=== PATIENT | female | born 1940 | race Caucasian/White ===

== ENCOUNTER 2016-10-10 08:42 | Outpatient (CLI) | payer MEDICARE | END 2016-10-10 08:43 | disposition home or self-care (01) | DX: E11.9 Type 2 diabetes mellitus without complications (principal); I10 Essential (primary) hypertension; E78.5 Hyperlipidemia, unspecified; E55.9 Vitamin D deficiency, unspecified ==

== ENCOUNTER 2016-11-03 08:57 | Outpatient (CLI) | payer MEDICARE | END 2016-11-03 08:58 | disposition home or self-care (01) | DX: E78.5 Hyperlipidemia, unspecified (principal); I10 Essential (primary) hypertension; E11.9 Type 2 diabetes mellitus without complications ==

== ENCOUNTER 2017-01-26 09:09 | Outpatient (CLI) | payer MEDICARE ==
--- NOTE | 2017-01-26 14:07 | XRAY Report ---
TWO-VIEW CHEST: 01/26/2017 CLINICAL INDICATION: Bronchitis, wheezing. COMPARISON: 04/07/2013 FINDINGS: Frontal and lateral views of the chest demonstrate a normal cardiac silhouette. The lungs are clear. No effusion or pneumothorax is present. IMPRESSION: NORMAL CHEST, UNCHANGED. JOB #: [id number] EXT JOB #:[id number]
== END 2017-01-26 09:10 | disposition home or self-care (01) ==
LOC: DI 09:09
PROVIDERS: ATTEND Nurse Practitioner Family
DX: J20.9 Acute bronchitis, unspecified (principal)
CPT/HCPCS: 71020

== ENCOUNTER 2017-02-22 13:38 | Outpatient (CLI) | payer MEDICARE | END 2017-02-22 13:39 | disposition home or self-care (01) | LOC: DI 13:38 | PROVIDERS: ATTEND Physician Assistant | DX: R01.1 Cardiac murmur, unspecified (principal); I51.7 Cardiomegaly; I35.0 Nonrheumatic aortic (valve) stenosis | CPT/HCPCS: 93306 ==

== ENCOUNTER 2017-02-23 08:42 | Outpatient (CLI) | payer MEDICARE ==
[2017-02-23 11:51] LABS: HEMOGLOBIN A1C 0.67 g/dL
== END 2017-02-23 08:43 | disposition home or self-care (01) ==
LOC: LAB.F 08:42
PROVIDERS: ATTEND Physician Assistant
DX: E11.9 Type 2 diabetes mellitus without complications (principal)
CPT/HCPCS: 36415; 82947; 83036

== ENCOUNTER 2017-05-18 08:34 | Outpatient (CLI) | payer MEDICARE ==
[2017-05-18 11:41] LABS: HEMOGLOBIN A1C 0.66 g/dL
== END 2017-05-18 08:35 | disposition home or self-care (01) ==
LOC: LAB.F 08:34
PROVIDERS: ATTEND Physician Assistant
DX: E11.9 Type 2 diabetes mellitus without complications (principal)
CPT/HCPCS: 36415; 82947; 83036

== ENCOUNTER 2017-07-02 14:36 | Outpatient (CLI) | payer MEDICARE ==
--- NOTE | 2017-07-04 09:27 | XRAY Report ---
LEFT HIP AND PELVIS: 07/02/2017 COMPARISON: Lumbar spine MRI 09/19/2014. INDICATION: Unspecified pain. TECHNIQUE: Single view of the hips and pelvis and lateral view of the left hip. FINDINGS: There is [id number] joint space narrowing of the hips. There are mild hypertrophic changes of the hips. There is prominence of the left femoral head/neck junction. Alignment appears anatomic. No acute bone findings are seen. IMPRESSION: 1. [id number]-JA-OUSURRGY HIP OSTEOARTHRITIS BILATERALLY. 2. PROMINENCE OF THE LEFT FEMORAL HEAD/NECK JUNCTION. CORRELATE CLINICALLY FOR POSSIBLE FEMORAL RITESH TABULAR IMPINGEMENT. JOB #: [id number] EXT JOB #:[id number]
== END 2017-07-02 14:37 | disposition home or self-care (01) ==
LOC: DI.S 14:36
PROVIDERS: ATTEND Physician Assistant
DX: M16.0 Bilateral primary osteoarthritis of hip (principal)

== ENCOUNTER 2017-08-15 08:40 | Outpatient (CLI) | payer MEDICARE ==
[2017-08-15 11:37] LABS: HEMOGLOBIN A1C 0.71 g/dL
== END 2017-08-15 08:41 | disposition home or self-care (01) ==
LOC: LAB.F 08:40
PROVIDERS: ATTEND Physician Assistant
DX: E11.9 Type 2 diabetes mellitus without complications (principal); I10 Essential (primary) hypertension
CPT/HCPCS: 36415; 82947; 83036

== ENCOUNTER 2017-10-12 08:15 | Outpatient (CLI) | payer MEDICARE ==
[2017-10-12 11:05] LABS: ALBUMIN 4.4 g/dL (3.2-5.5); ALBUMIN/GLOBULIN RATIO 1.4 (1.0-2.2); BILIRUBIN,TOTAL 0.7 mg/dL (0.2-1.0); CALCIUM 9.8 mg/dL (8.5-10.3); CREATININE 1.2 mg/dL (0.4-1.0); TOTAL PROTEIN 7.5 g/dL (6.7-8.2)
[2017-10-12 11:12] LABS: HB2 TOTAL 14.5 g/dL; HEMOGLOBIN A1C 0.76 g/dL; HEMOGLOBIN A1C % 6.9 % (4.6-6.2)
== END 2017-10-12 08:16 | disposition home or self-care (01) ==
LOC: LAB.F 08:15
PROVIDERS: ATTEND Physician Assistant
DX: I12.9 Hypertensive chronic kidney disease with stage 1 through stage 4 chronic kidney disease, or unspecified chronic kidney disease (principal); E11.9 Type 2 diabetes mellitus without complications; I35.9 Nonrheumatic aortic valve disorder, unspecified; N18.3 Chronic kidney disease, stage 3 (moderate)
CPT/HCPCS: 36415; 80053; 83036

== ENCOUNTER 2017-11-24 02:30 | Outpatient (CLI) | payer MEDICARE | END 2017-11-24 02:31 | disposition critical access hospital (66) | LOC: EMS 02:30 | PROVIDERS: ATTEND Surgery | DX: R07.9 Chest pain, unspecified (principal) | CPT/HCPCS: A0425; A0427 ==

== ENCOUNTER 2017-11-24 03:11 | Emergency (ER) | payer MEDICARE ==
--- NOTE | 2017-11-24 03:35 | ED Physician Documentation ---
PD HPI CHEST PAIN - Stated complaint Stated Complaint: CP - Chief complaint Chief Complaint: Cardiac - History obtained from History obtained from: Patient, EMS - History of Present Illness Timing - onset: How many hours ago (3) Timing - onset during: Rest Timing - details: Abrupt onset, Intermittant Quality: Sharp Location: Substernal, Left chest, Right chest Worsened by: Inspiration, Movement, Palpation, Position. No: Exertion Associated symptoms: No: Shortness of air, Diaphoresis, Nausea, Vomiting, Feeling faint / dizzy Similar symptoms before: Has not had sx before Recently seen: Not recently seen - Additional information Additional information: Patient is a 77 year old female with a history of diabetes and htn who is presenting to the emergency department for chest pain. Patient states that it started about midnight when she was brushing her teeth. patient states that she went to bed. She woke up a bit later and still had pain in her chest. Patient states that it is worse with movement and inspiration. Patient states that she went on a long walk earlier in the day and it did not give her any pain. Review of Systems Constitutional: denies: Fever, Chills Eyes: reports: Reviewed and negative Ears: reports: Reviewed and negative Nose: denies: Rhinorrhea / runny nose, Congestion Throat: denies: Sore throat Cardiac: reports: Chest pain / pressure. denies: Palpitations, Calf pain Respiratory: denies: Dyspnea, Cough, Wheezing GI: denies: Abdominal Pain, Nausea, Vomiting : denies: Dysuria, Frequency, Hesitancy Skin: denies: Rash, Lesions Neurologic: denies: Generalized weakness Immunocompromised: denies: Immunocompromised PD PAST MEDICAL HISTORY - Past Medical History Cardiovascular: Hypertension, High cholesterol, Murmur Respiratory: Sleep apnea, CPAP use Endocrine/Autoimmune: Type 2 diabetes GI: Colon polyps : None HEENT: Chronic vision loss Psych: None Musculoskeletal: Chronic back pain Derm: None - Past Surgical History Past Surgical History: Yes General: Appendectomy Ortho: Knee replacement /[employer]: Hysterectomy - Present Medications Home Medications: Ambulatory Orders Medication Instructions Recorded Confirmed Aspirin [Children's Aspirin] 81 mg PO DAILY 09/19/14 03/16/15 Lisinopril 10 mg PO DAILY 09/19/14 03/16/15 Metformin HCl [Metformin HCl ER] 1,000 mg PO BID 09/19/14 03/16/15 Simvastatin 40 mg PO DAILY 09/19/14 03/16/15 Trazodone HCl 50 mg PO DAILY 09/19/14 03/16/15 Insulin Glargine,Hum.rec.anlog 9 unit SQ BID 03/16/15 03/16/15 [Lantus] - Allergies Allergies/Adverse Reactions: Allergies Allergy/AdvReac Type Severity Reaction Status Date / Time cephalexin [From Keflex] Allergy Rash Verified 11/24/17 03:22 codeine Allergy Rash Verified 11/24/17 03:21 - Social History Does the pt smoke?: No Smoking Status: Never smoker Does the pt drink ETOH?: No Does the pt have substance abuse?: No - POLST Patient has POLST: Yes PD ED PE NORMAL - General General: Alert and oriented X 3, No acute distress, Well developed/nourished - HEENT HEENT: Atraumatic, PERRL - Neck Neck: Supple, no meningeal sign, No JVD - Respiratory Respiratory: No respiratory distress - Abdomen Abdomen: Soft, Non tender, Non distended PD ED PE EXPANDED - Cardiac Cardiac: Murmur Present, Chest wall TTP (tender to left anterior chest) Results - Vitals Vitals: Vital Signs - 24 hr 11/24/17 11/24/17 11/24/17 03:12 04:08 05:14 Temperature 36.8 C Heart Rate 78 73 76 Respiratory 22 18 20 Rate Blood Pressure 149/59 H 137/46 H 129/45 L O2 Saturation 98 98 99 Oxygen O2 Source Nasal cannula Oxygen Flow Rate 2 - EKG (time done) 0326 Rate: Rate (enter#) (78) Rhythm: NSR [place]: Normal Intervals: Normal [place] Compare to prior EKG: Old EKG unavailable 0533 Rate: Rate (enter#) (73) Rhythm: NSR [place]: Normal Intervals: Normal [place] Compare to prior EKG: Unchanged from prior EKG - Labs Labs: Laboratory Tests 11/24/17 11/24/17 11/24/17 03:38 03:38 03:38 WBC 9.2 RBC 4.00 L Hgb 12.6 Hct 37.4 MCV 93.5 MCH 31.5 H MCHC 33.6 RDW 13.5 Plt Count 91 L MPV 9.7 Neut # Not Reportable Lymph # Not Reportable [place] # Not Reportable Eos # Not Reportable Baso # Not Reportable Absolute Nucleated RBC Not Reportable Total Counted 100 Band Neuts % (Manual) 0 Abnorm Lymph % (Manual) 0 Nucleated RBC % Not Reportable Neutrophils # (Manual) 7.4 H Lymphocytes # (Manual) 0.6 L Monocytes # (Manual) 1.2 H Eosinophils # (Manual) 0.0 Basophils # (Manual) 0.0 Differential Comment MANUAL DIFFERENTIAL Platelet Estimate DECREASED (<130,000) RBC Morph Micro Appear NORMAL APPEARANCE D-Dimer 256.8 H Sodium 133 L Potassium 4.5 Chloride 104 Carbon Dioxide 20 L Anion Gap 9.0 BUN 35 H Creatinine 1.0 Estimated GFR (MDRD) 54 L Glucose 270 H Calcium 9.5 Total Bilirubin 0.4 AST 27 ALT 20 Alkaline Phosphatase 79 Troponin I B-Natriuretic Peptide Total Protein 7.4 Albumin 4.2 Globulin 3.2 Albumin/Globulin Ratio 1.3 Lipase 19 L 11/24/17 11/24/17 11/24/17 03:38 03:38 05:31 WBC RBC Hgb Hct MCV MCH MCHC RDW Plt Count MPV Neut # Lymph # [place] # Eos # Baso # Absolute Nucleated RBC Total Counted Band Neuts % (Manual) Abnorm Lymph % (Manual) Nucleated RBC % Neutrophils # (Manual) Lymphocytes # (Manual) Monocytes # (Manual) Eosinophils # (Manual) Basophils # (Manual) Differential Comment Platelet Estimate RBC Morph Micro Appear D-Dimer Sodium Potassium Chloride Carbon Dioxide Anion Gap BUN Creatinine Estimated GFR (MDRD) Glucose Calcium Total Bilirubin AST ALT Alkaline Phosphatase Troponin I 0.04 0.04 B-Natriuretic Peptide 51 Total Protein Albumin Globulin Albumin/Globulin Ratio Lipase - Rads (name of study) ct angio Radiology: Final report received (no PE, mild calcifications) PD MEDICAL DECISION MAKING - ED course Complexity details: reviewed old records, reviewed results, re-evaluated patient , considered differential, d/w patient ED course: patient was seen and examined at bedside. ekg was performed and was nsr. IV access was gained and labs were drawn. Patient was in no distress. Patient's d -dimer was mildly elevated so CT angio was ordered and was within normal limits. Patient was treated with tylenol for pain, which patient states helped. patient's repeat troponin and ekg were negative. Patient required no further inpatient work up at this time and was stable for discharge with outpatient follow up. Departure - Departure Disposition: 01 Home, Self Care Clinical Impression: Atypical chest pain, Pleurisy Condition: Good Instructions: ED Chest Pain NonCardiac Follow-Up: Eva Ley PA [Primary Care Provider] - Within 3 Days Comments: Your diagnostics today were within normal limits. There was no sign of acute heart attack or pulmonary embolism. That being said this is only a snapshot in time. It is important that you call your doctor sunday to schedule a follow up appointment including a stress test. otherwise you can alternate between ibuprofen and tylenol as needed for pain. You can return to the emergency department at any time for new, worsening or uncontrollable symptoms.
[2017-11-24 03:47] LABS: BASOPHILS % (AUTO) 0.3 %; EOSINOPHILS % (AUTO) 0.2 %; HGB - HEMOGLOBIN 12.6 g/dL (12.0-16.0); LYMPHOCYTES % (AUTO) 15.1 %; MEAN CORPUSCULAR HEMOGLOBIN 31.5 pg (27.0-31.0); MEAN CORPUSCULAR HGB CONC 33.6 g/dL (32.0-36.0); MEAN CORPUSCULAR VOLUME 93.5 fL (81.0-99.0); MEAN PLATELET VOLUME 9.7 fL (7.9-10.8); MONOCYTES % (AUTO) 16.9 %; NEUTROPHILS % (AUTO) 67.5 %; PLT - PLATELET COUNT 91 10^3/uL (130-450); RED CELL DISTRIBUTION WIDTH 13.5 % (12.0-15.0); WHITE BLOOD COUNT 9.2 x10^3/uL (4.8-10.8)
[2017-11-24 03:54] LABS: ABNORMAL LYMPHS % (MANUAL) 0 %; BAND NEUTROPHILS % (MANUAL) 0 %
[2017-11-24 04:00] LABS: ALBUMIN 4.2 g/dL (3.2-5.5); ALBUMIN/GLOBULIN RATIO 1.3 (1.0-2.2); BILIRUBIN,TOTAL 0.4 mg/dL (0.2-1.0); CALCIUM 9.5 mg/dL (8.5-10.3); TOTAL PROTEIN 7.4 g/dL (6.7-8.2)
[2017-11-24] MEDS ORDERED: ACETAMINOPHEN 500 MG TABLET PO STA (04:09)
--- NOTE | 2017-11-24 04:16 | XRAY Report ---
EXAM: CHEST RADIOGRAPHY EXAM DATE: 11/24/2017 04:06 AM. CLINICAL HISTORY: Chest pain. COMPARISON: 01/26/2017. TECHNIQUE: 2 views. FINDINGS: Lungs/Pleura: No focal opacities evident. No pleural effusion. No pneumothorax. Normal volumes. Mediastinum: Heart and mediastinal contours are unremarkable. Other: None. IMPRESSION: Stable negative 2-view chest radiography. [facility] Referring Provider Line: [phone] SITE ID: [id number]
[2017-11-24] MEDS ORDERED: IOPAMIDOL-300 100 ML VIAL ONE (04:21)
[2017-11-24 04:23] LABS: DIFFERENTIAL COMMENT MANUAL DIFFERENTIAL; LYMPHOCYTES # (MANUAL) 0.6 10^3/uL (1.5-3.5); LYMPHOCYTES % (MANUAL) 7 %; MONOCYTES # (MANUAL) 1.2 10^3/uL (0.0-1.0); NEUTROPHILS # (MANUAL) 7.4 10^3/uL (1.5-6.6); NEUTROPHILS % (MANUAL) 80 %; PLATELET ESTIMATE, MANUAL DECREASED (<130,000) (NORMAL); RBC MORPHOLOGY (MULTIPLE) NORMAL APPEARANCE (NORMAL)
[2017-11-24] MEDS ORDERED: IOPAMIDOL-300 100 ML VIAL IVP ONE (04:43)
--- NOTE | 2017-11-24 05:26 | CT Preliminary Report ---
Exam: CT CHEST ANGIO (PE) IMPRESSION: 1. Negative pulmonary CT angiogram. No pulmonary emboli. 2. Mitral annular and coronary calcifications. [facility] SITE ID: [id number]
--- NOTE | 2017-11-24 05:29 | CT Report ---
EXAM: CT ANGIOGRAM CHEST EXAM DATE: 11/24/2017 04:58 AM. CLINICAL HISTORY: Chest pain, elevated dimer. COMPARISON: None. TECHNIQUE: Routine helical imaging was performed through the chest in the pulmonary arterial phase. I V Contrast: Yes. Reconstructions: Coronal 3-D MIP reconstructions.Sagittal and coronal. In accordance with CT protocol optimization, one or more of the following dose reduction techniques w ere utilized for this exam: automated exposure control, adjustment of mA and/or KV based on patient s ize, or use of iterative reconstructive technique. FINDINGS: Pulmonary Arteries: Technically adequate for evaluation through the segmental arteries. No evidence f or acute or chronic pulmonary emboli. Lungs/Pleura: No pneumonia, suspicious nodules, or edema. No effusions or pneumothorax. Mediastinum: No acute aortic syndrome. Mitral annular and coronary calcifications. No cardiac enlarg ement. No adenopathy. Upper Abdomen: Small benign left adrenal adenoma. Other: None. IMPRESSION: 1. Negative pulmonary CT angiogram. No pulmonary emboli. 2. Mitral annular and coronary calcifications. [facility] Referring Provider Line: [phone] SITE ID: [id number]
[2017-11-24 07:49] VITALS: BP 132/48
== END 2017-11-24 08:00 | disposition home or self-care (01) ==
LOC: EDUNIT# → ED 03:11 → SUPCPDRO 03:11 → ED 08:00
DX: R07.89 Other chest pain (principal); R09.1 Pleurisy; I10 Essential (primary) hypertension; E11.9 Type 2 diabetes mellitus without complications; Z79.4 Long term (current) use of insulin; E78.00 Pure hypercholesterolemia, unspecified; G47.30 Sleep apnea, unspecified; Z86.010 Personal history of colon polyps; Z79.82 Long term (current) use of aspirin
CPT/HCPCS: 36415; 71046; 71275; 80053; 83690; 83880; 84484; 85025; 85379; 93005; 99284; A9270; Q9967

== ENCOUNTER 2018-08-17 07:41 | Outpatient (CLI) | payer MEDICARE ==
--- NOTE | 2018-08-18 09:04 | MRI Report ---
Reason: HEADACHE Procedure Date: 08/17/2018 Accession Number: [id number] / [id number] Procedure: MRI - Brain W/O CPT Code: FULL RESULT: EXAM: MRI BRAIN WITHOUT CONTRAST EXAM DATE: 08/17/2018 08:52 AM. CLINICAL HISTORY: 78-year-old woman with headache. COMPARISON: BRAIN 07/24/2009 8:51 AM. TECHNIQUE: Multiplanar, multisequence T1-weighted and fluid-sensitive MR sequences of the brain were performed. Sequences optimized for routine evaluation. Other: None. IV Contrast: None. FINDINGS: Parenchyma: No evidence of acute infarct on diffusion weighted sequence. The parenchyma demonstrates mild burden of nonspecific FLAIR hyperintensities in the deep cerebral and periventricular white matter, similar to the 07/24/2009 exam and a common finding in this age group. No evidence of prior hemorrhage on susceptibility weighted sequence. Pituitary: Unremarkable. Ventricles and Extra-axial Spaces: Ventricles are symmetric and normal in size for age. Extra-axial spaces are unremarkable. Orbits: Unremarkable. Sinuses: Paranasal sinuses and mastoid air cells are clear. Major Vascular Flow Voids: Intact. IMPRESSION: 1. No acute intracranial abnormality. Specifically, no evidence of acute infarct, hemorrhage, or mass lesion. 2. Mild white matter changes, similar to the 07/24/2009 exam and a common finding in this age group. [facility]
--- NOTE | 2018-08-18 09:04 | MRI Report ---
Reason: HEADACHES Procedure Date: 08/17/2018 Accession Number: [id number] / [id number] Procedure: MRI - Angio Brain W/O (MRA) CPT Code: FULL RESULT: EXAM MRA BRAIN EXAM DATE: 08/17/2018 08:18 AM. CLINICAL HISTORY: 78-year-old woman with headaches. COMPARISON: None. TECHNIQUE: Multiplanar, multisequence MRA sequences of the brain were performed. Other: None. Post-processing: Multiplanar 3D MIP reconstructions. IV Contrast: None. FINDINGS: RIGHT: - Visualized Internal Carotid: Patent without significant stenosis or aneurysm. - Anterior Cerebral: The A1 and A2 segments are hypoplastic, a normal variant. Distal branches are supplied by an azygos left A2 segment. - Middle Cerebral: Patent without significant stenosis or aneurysm. - Posterior Cerebral: Patent without significant stenosis or aneurysm. - Posterior Communicating: Patent. No aneurysm. - Visualized Vertebral: Patent without significant stenosis or dissection. LEFT: - Visualized Internal Carotid: Patent without significant stenosis or aneurysm. - Anterior Cerebral: Patent without significant stenosis or aneurysm. - Middle Cerebral: Patent without significant stenosis or aneurysm. - Posterior Cerebral: Patent without significant stenosis or aneurysm. - Posterior Communicating: Patent. No aneurysm. - Visualized Vertebral: Patent without significant stenosis or dissection. CENTRAL: - Anterior Communicating: Patent. No aneurysm. - Basilar: Patent without significant stenosis, dissection, or aneurysm. IMPRESSION: 1. Normal brain MRA. No significant vascular stenosis or aneurysm. [facility]
== END 2018-08-17 07:42 | disposition home or self-care (01) ==
LOC: DI 07:41
PROVIDERS: ATTEND Physician Assistant
DX: R51 Headache (principal)
CPT/HCPCS: 70544; 70551

== ENCOUNTER 2018-12-02 11:29 | Outpatient (CLI) | payer MEDICARE ==
--- NOTE | 2018-12-02 13:43 | XRAY Report ---
Reason: COMMUNITY ACQUIRED PNEUMONIA Procedure Date: 12/02/2018 Accession Number: [id number] / [id number] Procedure: XR - Chest 2 View X-Ray CPT Code: 36534 FULL RESULT: EXAM: CHEST RADIOGRAPHY EXAM DATE: 12/02/2018 12:30 PM. CLINICAL HISTORY: Community acquired pneumonia. COMPARISON: CHEST 2 VIEW 11/24/2017 3:43 AM. TECHNIQUE: 2 views. FINDINGS: Lungs/Pleura: No focal opacities evident. No pleural effusion. No pneumothorax. Normal volumes. Mediastinum: Mild calcifications of the aortic arch are stable. No cardiomegaly. Other: None. IMPRESSION: No airspace consolidation. [facility]
== END 2018-12-02 11:30 | disposition home or self-care (01) ==
LOC: DI 11:29
PROVIDERS: ATTEND Physician Assistant
DX: J18.9 Pneumonia, unspecified organism (principal)
CPT/HCPCS: 71046

== ENCOUNTER 2018-12-18 08:19 | Outpatient (CLI) | payer MEDICARE | END 2018-12-18 08:20 | disposition home or self-care (01) | LOC: DI 08:19 | PROVIDERS: ATTEND Physician Assistant | DX: I35.0 Nonrheumatic aortic (valve) stenosis (principal) | CPT/HCPCS: 93306 ==

== ENCOUNTER 2019-04-08 12:17 | Outpatient (CLI) | payer MEDICARE | END 2019-04-08 12:18 | disposition short-term general hospital (02) | LOC: EMS 12:17 | PROVIDERS: ATTEND Surgery | DX: R53.1 Weakness (principal); R19.7 Diarrhea, unspecified; R42 Dizziness and giddiness | CPT/HCPCS: A0425; A0427 ==

== ENCOUNTER 2019-04-30 11:24 | Outpatient (CLI) | payer MEDICARE ==
[2019-04-30 17:40] LABS: BASOPHILS % (AUTO) 0.3 %; EOSINOPHILS % (AUTO) 0.8 %; HGB - HEMOGLOBIN 12.3 g/dL (12.0-16.0); LYMPHOCYTES # (AUTO) 1.6 10^3/uL (1.5-3.5); LYMPHOCYTES % (AUTO) 43.8 %; MEAN CORPUSCULAR HEMOGLOBIN 31.6 pg (27.0-31.0); MEAN CORPUSCULAR VOLUME 95.9 fL (81.0-99.0); MEAN PLATELET VOLUME 11.5 fL (7.9-10.8); MONOCYTES # (AUTO) 0.6 10^3/uL (0.0-1.0); MONOCYTES % (AUTO) 16.3 %; NEUTROPHILS # (AUTO) 1.4 10^3/uL (1.5-6.6); NEUTROPHILS % (AUTO) 38.3 %; PLT - PLATELET COUNT 82 10^3/uL (130-450); RED BLOOD COUNT 3.89 10^6/uL (4.20-5.40); RED CELL DISTRIBUTION WIDTH 13.8 % (12.0-15.0); WHITE BLOOD COUNT 3.7 x10^3/uL (4.8-10.8)
[2019-04-30 18:04] LABS: % IRON SATURATION 27 % (20-50); IRON 68 ug/dL (28-170); TOTAL IRON BINDING CAPACITY 253 ug/dL (250-450); TRANSFERRIN 181 mg/dL (192-382)
== END 2019-04-30 11:25 | disposition home or self-care (01) ==
LOC: LAB.S 11:24
PROVIDERS: ATTEND Physician Assistant
DX: D50.9 Iron deficiency anemia, unspecified (principal); D69.6 Thrombocytopenia, unspecified
CPT/HCPCS: 36415; 82728; 83540; 84466; 85025

== ENCOUNTER 2019-05-02 08:04 | Outpatient (CLI) | payer MEDICARE | END 2019-05-02 08:05 | disposition home or self-care (01) | LOC: LAB.S 08:04 | PROVIDERS: ATTEND Physician Assistant | DX: D69.6 Thrombocytopenia, unspecified (principal) | CPT/HCPCS: 36415; 82607; 82746 ==